=== PATIENT | male | born 1940 | race Caucasian/White ===

== ENCOUNTER 2017-10-24 08:31 | Day surgery (SDC) | payer MEDICARE ==
[~2017-10-24 08:31] MED LIST: Povidone-Iodine 5% Sterile Ophth Soln 30 ML Bottle EYELF ONE
[2017-10-24] MEDS ORDERED: Dexamethasone 4 MG/ML SDV IV ONE (08:32)
[2017-10-24] MEDS ORDERED: Midazolam 1 MG/ML 2 ML SDV IV ONE (08:32)
[2017-10-24] MEDS ORDERED: Cataract Ophth Solution EYELF ONE (09:00)
[2017-10-24] MEDS ORDERED: Timolol Maleate 0.5% Ophth Soln 5 ML Bottle EYELF ONE (09:00)
[2017-10-24] MEDS ORDERED: Proparacaine 0.5% Ophth Soln 15 ML Bottle EYELF ONE (09:00)
[2017-10-24] MEDS ORDERED: Moxifloxacin 0.5% Ophth Soln 3 ML Bottle EYELF ONE (09:00)
[2017-10-24] MEDS ORDERED: Phenylephrine 10% Ophth Soln 5 ML Bot EYELF ONE (09:00)
[2017-10-24] MEDS ORDERED: Acetaminophen 325 MG Tab PO PRN (09:00)
[2017-10-24] MEDS ORDERED: Sodium Chloride 0.9% 10 ML Syringe FLUSH PRN (09:00)
[2017-10-24] MEDS ORDERED: Ondansetron 4 MG/2 ML SDV IVPUSH PRN (09:00)
[2017-10-24] MEDS ORDERED: Diclofenac Sodium 0.1% Ophth Soln 5 ML Bottle EYELF ONE (10:07)
[2017-10-24] MEDS ORDERED: Apraclonidine 0.5% Ophth Soln 5 ML Bot EYELF ONE (10:07)
[2017-10-24] MEDS ORDERED: Tetracaine HCl/PF 0.5% 4 ML Bottle EYELF ONE (10:07)
[2017-10-24] MEDS ORDERED: Dexamethasone/Neomycin/Polymyxin B Ophth Oint 3.5 GM Tube EYELF ONE (10:07)
[2017-10-24] MEDS ORDERED: Lidocaine 1% 30 ML SDV ONE (10:07)
[2017-10-24] MEDS ORDERED: Balanced Salt Solution Ophth Irrig 500 ML Bottle IOCULAR ONE (10:08)
[2017-10-24] MEDS ORDERED: Chondroitin Sulfate/Hyaluronate Sodium Ophth Inj 0.5 ML Syringe IOCULAR ONE (10:08)
[2017-10-24] MEDS ORDERED: Vancomycin 500 MG SDV EYELF ONE (10:08)
--- NOTE | 2017-10-24 13:28 | OR ---
DATE: 10/24/2017 PREOPERATIVE DIAGNOSES: Visually significant mixed cataract, left eye. POSTOPERATIVE DIAGNOSES: Visually significant mixed cataract, left eye. PROCEDURE: Extracapsular cataract extraction with intraocular lens implant, left eye. ANESTHESIA: Topical/local MAC. COMPLICATIONS: None. INDICATION: Mr. Mack was seen in the clinic. His clinical examination revealed visually significant mixed nuclear and cortical cataract. He is symptomatic with complaints of blurred vision, difficulty reading, difficulty seeing fine print, and difficulty seeing television. I explained options. I offered cataract surgery, and I explained risks including the potential for vision loss. We discussed implant options. He requested a monofocal implant. OPERATIVE DESCRIPTION: After informed consent was obtained and the risks, benefits, and alternatives were explained, the patient was brought to the operative suite and topical anesthesia was administered. The patient was then prepped and draped in the sterile fashion and attention was placed on the left eye. A sterile lid speculum was placed into the left eye to allow operative exposure. A full-thickness paracentesis was made in the temporal portion of the operative eye. Preservative-free lidocaine 0.1 mL was injected into the anterior chamber followed by viscoelastic. A full-thickness corneal incision was then made into the anterior chamber. A bent needle cystotome was used to create a small karri in the anterior capsule. The capsulorrhexis forceps was then used to create a 360-degree curvilinear capsulorrhexis. The nucleus was then removed using a phacoemulsification handpiece and the remaining cortical material was then removed with irrigation and aspiration handpiece. Following removal of the cortical material, the capsular bag was then inspected and noted to be free of any holes or tears. Viscoelastic was then injected into the capsular bag and the intraocular lens was inserted into the capsular bag. The viscoelastic material was then removed from both the anterior and posterior chambers and from behind the IOL. The lens and capsular bag were then reinspected. The IOL was well centered and the capsular bag intact. The wound and paracentesis sites were inspected and hydrated with balanced saline solution. Both were found to be self- sealing. The intraocular pressure was assessed digitally and found to be within normal range. A good red reflex was noted at the completion of the procedure. No complications occurred during the operation. At the completion of the procedure, Maxitrol, Voltaren, and Iopidine drops were placed into the operative eye. A sterile eye shield was placed over the operative eye and the patient was transported to the postoperative recovery area having tolerated the procedure well. Postoperative instructions were given along with a postoperative appointment. The patient was advised to call with any questions or concerns. [facility] /[id number]
== END 2017-10-24 11:25 | disposition home or self-care (01) ==
LOC: DL.SDS 08:31
PROVIDERS: ATTEND Ophthalmology
DX: H25.812 Combined forms of age-related cataract, left eye (principal); J44.9 Chronic obstructive pulmonary disease, unspecified; E11.9 Type 2 diabetes mellitus without complications; E78.5 Hyperlipidemia, unspecified; I10 Essential (primary) hypertension; I50.9 Heart failure, unspecified; Z95.2 Presence of prosthetic heart valve; Z87.891 Personal history of nicotine dependence; Z91.041 Radiographic dye allergy status; Z79.84 Long term (current) use of oral hypoglycemic drugs; Z79.82 Long term (current) use of aspirin; Z79.899 Other long term (current) drug therapy
CPT/HCPCS: 00142; 66984; A9270; J1100; J2250; J3370; J7050; C1780

== ENCOUNTER 2018-12-02 16:51 | Emergency (ER) | payer MEDICARE, OTHER ==
--- NOTE | 2018-12-02 15:21 | EDM.PDOC ---
ED HPI GENERAL MEDICAL PROBLEM - General Chief Complaint: Trauma Stated Complaint: CALL IN FROM CLINIC Time Seen by Provider: 12/02/18 15:20 Source of Information: Reports: Patient, Old Records, Provider (Alice Hannah NP), RN , RN Notes Reviewed History Limitations: Reports: No Limitations - History of Present Illness INITIAL COMMENTS - FREE TEXT/NARRATIVE: Pt arrives to ER by POV sent from clinic by Alice Hannah NP for evaluation due to right should injury yesterday sustained from a ground level fall outside next to his car. Pt states he slipped and lost his balance and fell to his right side. The fall was approx. 22 to 23 hours ago. He states that he did hit his head, but did not have a LOC and denies nausea, vomiting, neck pain or any other injury. Pt did not seek medical care until today because his right upper arm/shoulder were still painful. See RN/paper trauma chart for time of Trauma Alert. Pt declined/refused c-collar on arrival. GCS on arrival: 15 Onset: Sudden Onset Date: 12/01/18 Onset Time: 14:30 (est. time per pt.) Duration: Day(s): (1) Location: Reports: Upper Extremity, Right Quality: Reports: Ache Severity: Severe Improves with: Reports: Immobilization Worsens with: Reports: Movement Context: Reports: Other (Ground level fall) Associated Symptoms: Reports: No Other Symptoms - Related Data Allergies Allergy/AdvReac Type Severity Reaction Status Date / Time XRAY DYE Allergy Other Uncoded 10/24/17 09:18 Home Meds: Home Meds Albuterol [IJD: Albuterol] 1 vial INH ASDIRECTED 10/22/17 [History] Aspirin [Halfprin] 81 mg PO DAILY 10/22/17 [History] Budesonide [Pulmicort] 1 ampule INH BID 10/22/17 [History] Clopidogrel Bisulfate [Plavix] 75 mg PO DAILY 10/22/17 [History] Ferrous Sulfate [Iron] 325 mg PO DAILY 10/22/17 [History] Furosemide 20 mg PO DAILY 10/22/17 [History] Metoprolol Succinate [Toprol XL 50mg] 50 mg PO DAILY 10/22/17 [History] Simvastatin [Zocor] 20 mg PO DAILY 10/22/17 [History] Vitamin B Complex 1 tab PO DAILY 10/22/17 [History] metFORMIN HCl [Metformin HCl] 1,000 mg PO BID 10/22/17 [History] traMADol [Ultram] 1 tab PO Q6H 10/24/17 [History] Past Medical History HEENT History: Reports: Cataract Cardiovascular History: Reports: Heart Valve Replacement, Hypertension Respiratory History: Reports: Other (See Below) Other Respiratory History: is on inhalers due to heart Gastrointestinal History: Reports: Other (See Below) Other Gastrointestinal History: HX OF COLON CA Genitourinary History: Reports: None Musculoskeletal History: Reports: Arthritis Neurological History: Reports: None Psychiatric History: Reports: None Endocrine/Metabolic History: Reports: Diabetes, Type II Hematologic History: Reports: None Immunologic History: Reports: None Oncologic (Cancer) History: Reports: Colon Dermatologic History: Reports: None - Infectious Disease History Infectious Disease History: Reports: None - Past Surgical History HEENT Surgical History: Reports: None Cardiovascular Surgical History: Reports: Valve Replacement, Other (See Below) Other Cardiovascular Surgeries/Procedures: AORTIC 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 GI Surgical History: Reports: Colonoscopy, Other (See Below) Other GI Surgeries/Procedures: surg for colon ca Musculoskeletal Surgical History: Reports: Joint Replacement, Knee Replacement Social & Family History - Family History Family Medical History: Noncontributory - Caffeine Use Caffeine Use: Reports: Coffee Caffeine Use Comment: 16 oz - Alcohol Use Alcohol Use History: No - Recreational Drug Use Recreational Drug Use: No - Living Situation & Occupation Living situation: Reports: Single, Alone Occupation: Retired Review of Systems - Review of Systems Review Of Systems: ROS reveals no pertinent complaints other than HPI. ED EXAM, GENERAL - Physical Exam Exam: See Below Free Text/Narrative:: PRIMARY TRAUMA SURVEY (15:20HRS): Arrives by POV without spinal immobilization on long spinal board, or c-collar. Pt awake, alert, oriented to person, place, and date. AIRWAY: Patent nasal and oral airways. Conversant with clear speech. BREATHING: Spontaneous respirations, with lungs clear to auscultation B/L. CIRCULATION: Good color, no cyanosis. Intact peripheral pulses at all 4 distal extremities, normal capillary refill time at all four extremities distal digits. Heart irreg/irreg, no murmur, no rub. DISABILITY/DEFORMITIES: No bleeding. Right shoulder and upper arm with subacute appearing contusion and hematoma, with visible shoulder and/or clavicular deformity. No left upper or B/ L lower extremity pain, obvious deformity, lacerations, abrasions, swelling, bruising, discoloration, or other signs of injury. Riri pelvis intact, stable and non-tender. Abdomen benign to exam. Chest non-tender anteriorly, no flail chest, crepitus, or subcutaneous emphysema. Neuro. grossly intact with pt. A&O x3, appropriate conversation, no confusion, CN II-XII intact. No acute motor or sensory deficits, GCS 15 on arrival to ER. Skin clean, dry, warm, and intact. EXPOSURE: Pt had no neck or cervical riri tenderness, and full ROM of neck. No visible injury to back, no vertebral riri tenderness. SECONDARY TRAUMA SURVEY FOLLOWS: Exam Limited By: No Limitations General Appearance: Alert, No Apparent Distress, Other (Frail elderly appearing male) Eye Exam: Bilateral Eye: Normal Inspection Ears: Normal External Exam, Normal Canal, Hearing Grossly Normal, Normal TMs Nose: Normal Inspection, Normal Mucosa, No Blood Throat/Mouth: Normal Inspection, Normal Lips, Normal Oropharynx, Normal Voice, No Airway Compromise Head: Atraumatic, Normocephalic Neck: Normal Inspection, Supple, Non-Tender, Full Range of Motion Respiratory/Chest: No Respiratory Distress, Lungs Clear, No Accessory Muscle Use , Chest Non-Tender, Decreased Breath Sounds Cardiovascular: Irregularly Irregular GI/Abdominal: Normal Bowel Sounds, Soft, Non-Tender, No Distention, Other ( Benign obese abdomen) (Male) Exam: Deferred Rectal (Males) Exam: Deferred Back Exam: Normal Inspection, Full Range of Motion Extremities: Non-Tender (Left upper and B/L lower extremities.), Normal Capillary Refill, Other (Rt shoulder w/severe pain with any attempt at ROM.) Neurological: Alert, Oriented, CN II-XII Intact, Normal Cognition, No Motor/ Sensory Deficits, Other (GCS 15 at 1 hour. GCS 15 at time of discharge.) Psychiatric: Normal Affect, Normal Mood Skin Exam: Warm, Dry, Intact Course - Vital Signs Last Recorded V/S: See paper trauma chart for VS. - Orders/Labs/Meds Orders: Active Orders 24 hr Category Date Time Status Immobilizer [RC] ASDIRECTED Care 12/02/18 17:34 Active Labs: Laboratory Tests 12/02/18 12/02/18 12/02/18 Range/Units 15:28 15:28 15:28 WBC 13.2 H (5.0-10.0) 10^3/uL RBC 3.10 L (4.6-6.2) 10^6/uL Hgb 10.3 L (14.0-18.0) g/dL Hct 30.6 L (40.0-54.0) % MCV 98.7 (80-100) fL MCH 33.2 (27.0-34.0) pg MCHC 33.7 (33.0-35.0) g/dL Plt Count 219 (150-450) 10^3/uL Neut % (Auto) 75.4 H (42.2-75.2) % Lymph % (Auto) 12.5 L (20.5-50.1) % [place] % (Auto) 11.8 H (2-8) % Eos % (Auto) 0.1 L (1.0-3.0) % Baso % (Auto) 0.2 (0.0-1.0) % PT 11.2 (9.0-12.0) SEC INR 1.1 (0.9-1.2) APTT 23.9 (22.0-34.0) SEC Sodium 132 L (135-145) mmol/L Potassium 4.1 (3.6-5.0) mmol/L Chloride 96 L (101-111) mmol/L Carbon Dioxide 21.0 (21.0-31.0) mmol/L Anion Gap 19.1 BUN 36 H (7-18) mg/dL Creatinine 1.8 H (0.6-1.3) mg/dL Est Cr Clr Drug Dosing TNP Estimated GFR (MDRD) 36 BUN/Creatinine Ratio 20.00 Glucose 253 H (74-105) mg/dL Calcium 9.0 (8.4-10.2) mg/dl Total Bilirubin 0.9 (0.2-1.0) mg/dL AST 27 (10-42) IU/L ALT 11 (10-60) IU/L Alkaline Phosphatase 57 (42-121) IU/L Troponin I < 0.02 (0.00-0.02) ng/ml Total Protein 7.6 (6.7-8.2) g/dl Albumin 4.0 (3.2-5.5) g/dl Globulin 3.6 Albumin/Globulin Ratio 1.11 Ethyl Alcohol < 5 mg/dL Meds: Medications Discontinued Medications Generic Name Dose Route Start Last Admin Trade Name Gunnar PRN Reason Stop Dose Admin Hydromorphone HCl 0.5 mg 12/02/18 16:16 12/02/18 16:35 Dilaudid IVPUSH 12/02/18 16:17 0.5 mg ONETIME ONE Administration Hydromorphone HCl 0.5 mg 12/02/18 17:05 12/02/18 17:15 Dilaudid IVPUSH 12/02/18 17:06 0.5 mg ONETIME ONE Administration Ondansetron HCl 4 mg 12/02/18 16:16 12/02/18 16:31 Zofran IV 12/02/18 16:17 4 mg ONETIME ONE Administration Sodium Chloride 10 ml 12/02/18 15:23 12/02/18 17:22 Saline Flush FLUSH 10 ml ASDIRECTED PRN Administration Keep Vein Open - Radiology Interpretation Free Text/Narrative:: CT Head: no acute I.C. hemorrhage, see Rad. report. CT Rt Upper Extremity: Comminuted proximal Rt humeral fx w/impaction. 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 report. - Re-Assessments/Exams Free Text/Narrative Re-Assessment/Exam: 12/02/18 17:[address] Brunner via [employer] One Call. Dr. Brunner advises placing the pt in a shoulder immobilizer and he will see him in clinic on (December 04) for orthopedic evaluation. Pt rechecked prior to D/C. He was able to transfer and ambulate at his baseline. He understands the need and timing of orthopedic f/u with Dr. Brunner on Sunday. Pt states that he feels fine and is comfortable going home at this time. Departure - Departure Time of Disposition: 17:43 Disposition: Home, Self-Care 01 Condition: Fair Clinical Impression: Fall from ground level Minor head injury without loss of consciousness Qualifiers: Encounter type: initial encounter Qualified Code(s): S09.90XA - Unspecified injury of head, initial encounter Closed fracture of right proximal humerus Qualifiers: Encounter type: initial encounter Fracture morphology: other fracture Fracture alignment: displaced Qualified Code(s): S42.291A - Other displaced fracture of upper end of right humerus, initial encounter for closed fracture - Discharge Information *PRESCRIPTION DRUG MONITORING PROGRAM REVIEWED*: No *COPY OF PRESCRIPTION DRUG MONITORING REPORT IN PATIENT ELEUTERIO: No Instructions: Humerus Fracture Treated With Immobilization, [id number] Forms: ED Department Discharge Additional Instructions: Rx: Hydrocodone APAP 5mg/325mg *Do not drive while under the influence of this medication. Do not remove the shoulder brace. Call: [phone] to make an appointment for December [address] Brunner at [facility] in [place]. - My Orders Last 24 Hours: My Active Orders 12/02/18 17:34 Immobilizer [RC] ASDIRECTED - Assessment/Plan Last 24 Hours: My Active Orders 12/02/18 17:34 Immobilizer [RC] ASDIRECTED
[2018-12-02 15:56] LABS: ANION GAP 19.1; CHLORIDE,CL 96 mmol/L (101-111); SODIUM,NA 132 mmol/L (135-145)
--- NOTE | 2018-12-02 16:00 | CT ---
Clinical history: 78-year-old male experienced head injury with ground level fall (history colon cancer). Scan technique: Volume acquisition of data emergency unenhanced CT scan of the head and brain obtained while the patient was lying supine on the Siemens multi slice scanner [place], [place]. All data archived in the PACS system for storage, reformatting axial/sagittal/coronal planes and study. Interpretation: 1. Uniformly thick bony calvarium without sign of skull fracture, underlying brain contusion or epidural/subdural hematoma. 2. Moderate severe but age appropriate cerebral cortical atrophy with underlying mirror-image normal ventricular system. 3. Scattered microvascular ischemic changes periventricular white matter. No large ischemic infarcts or encephalomalacia. 4. No sign of acute intracerebral/intraventricular/subarachnoid bleed. 5. Cerebellum and brainstem unremarkable (physiologic midline pineal and symmetric choroid plexus calcifications). 6. Symmetric clear pneumatization of the paranasal and mastoid sinuses. 7. *Fracture right clavicle and impacted right humeral neck fracture noted incidentally on psychosocial rehabilitation counselor image. CONCLUSION: Right shoulder fractures. No skull fracture or signs of closed head injury.
--- NOTE | 2018-12-02 16:13 | CT ---
Clinical history: 78-year-old male injured right shoulder and ground-level fall. Interpretation: Volume acquisition of data emergency unenhanced CT scan right shoulder obtained while the patient was lying supine on the Siemens multi slice scanner [place], [place]. All data archived in the PACS system for storage, reformatting axial/sagittal/coronal planes and study. Interpretation: 1. *Comminuted proximal right humeral fracture with impaction of the proximal humeral shaft into the head of the humerus. 2. Anatomic alignment in the AP projection but... posterior angulation deformity humeral head on lateral projection. (no glenohumeral dislocation) Arthritic changes but no sternoclavicular or acromioclavicular separation. 3. 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 4. No fractures of the underlying ribs right hemithorax. No underlying contusion, ipsilateral right pleural effusion or pneumothorax. 5. Incidental evidence multilevel disc disease; chronic arthritis; neurosurgical intervention of the cervical spine (posterior fusion). 6. Cardiac Aortic valve prosthesis.
[2018-12-02] MEDS: Sodium Chloride 0.9% 10 ML Syringe FLUSH PRN ×2 (16:38→17:22)
[~2018-12-02 16:51] MED LIST changes: +HYDROmorphone 1 MG/ML Syringe IVPUSH ONE; +Ondansetron 4 MG/2 ML SDV IV ONE; -Povidone-Iodine 5% Sterile Ophth Soln 30 ML Bottle EYELF ONE
[2018-12-02] MEDS ORDERED: HYDROmorphone 1 MG/ML Syringe IVPUSH ONE (17:05)
== END 2018-12-02 18:33 | disposition home or self-care (01) ==
LOC: DL.ED 16:51
DX: S42.291A Other displaced fracture of upper end of right humerus, initial encounter for closed fracture (principal); S09.90XA Unspecified injury of head, initial encounter; E11.9 Type 2 diabetes mellitus without complications; W01.0XXA Fall on same level from slipping, tripping and stumbling without subsequent striking against object, initial encounter; Z79.82 Long term (current) use of aspirin; Z79.899 Other long term (current) drug therapy; Z79.84 Long term (current) use of oral hypoglycemic drugs; Z95.4 Presence of other heart-valve replacement
CPT/HCPCS: 36415; 70450; 73200; 80053; 84484; 85025; 85610; 85730; 96374; 96375; 99284; G0480; J1170; J2405

== ENCOUNTER 2021-05-20 14:37 | Emergency (ER) | payer MEDICARE ==
--- NOTE | 2021-05-20 14:55 | EDM.PDOC ---
ED HPI GENERAL MEDICAL PROBLEM - General Chief Complaint: Respiratory Problem Stated Complaint: AMBULANCE Time Seen by Provider: 05/20/21 14:40 Source of Information: Reports: Patient History Limitations: Reports: No Limitations - History of Present Illness INITIAL COMMENTS - FREE TEXT/NARRATIVE: This 81 yo male patient was brought to the ED from the [facility] due to shortness of breath. The clinic reported to nursing staff that they had done a COVID test, but did not wait for the results before bringing the patient to the ED. The patient reports he has been having increased weakness and shortness of breath over the past 1-2 weeks. The patient reports he does have a history of COPD and is on a nebulizer. The patient reports his last home treatment was at 1130 today. The patient reports he also has a history of cancer in his colon. Duration: Week(s):, Constant, Getting Worse Location: Reports: Chest Quality: Reports: Other Severity: Moderate Improves with: Reports: None Worsens with: Reports: Movement Associated Symptoms: Reports: cough w sputum, Shortness of Breath, Weakness Treatments [employer] WAVE: Reports: EKG, IV/IO Generalized Pain Score (Numeric/FACES): 5 - Related Data Allergies Allergy/AdvReac Type Severity Reaction Status Date / Time XRAY DYE Allergy Other Uncoded 05/20/21 14:48 Home Meds: Home Meds Albuterol [IJD: Albuterol] 1 vial INH ASDIRECTED 10/22/17 [History] Aspirin [Halfprin] 81 mg PO DAILY 10/22/17 [History] Budesonide [Pulmicort] 1 ampule INH BID 10/22/17 [History] Clopidogrel Bisulfate [Plavix] 75 mg PO DAILY 10/22/17 [History] Ferrous Sulfate [Iron] 325 mg PO DAILY 10/22/17 [History] Furosemide 20 mg PO DAILY 10/22/17 [History] Metoprolol Succinate [Toprol XL 50mg] 50 mg PO DAILY 10/22/17 [History] Simvastatin [Zocor] 20 mg PO DAILY 10/22/17 [History] Vitamin B Complex 1 tab PO DAILY 10/22/17 [History] metFORMIN HCl [Metformin HCl] 1,000 mg PO BID 10/22/17 [History] traMADol [Ultram] 1 tab PO Q6H 10/24/17 [History] Past Medical History HEENT History: Reports: Cataract Cardiovascular History: Reports: Heart Valve Replacement, Hypertension Respiratory History: Reports: Other (See Below) Other Respiratory History: is on inhalers due to heart Gastrointestinal History: Reports: Other (See Below) Other Gastrointestinal History: HX OF COLON CA Genitourinary History: Reports: Other (See Below) Other Genitourinary History: hx of bladder cancer Musculoskeletal History: Reports: Arthritis Neurological History: Reports: None Psychiatric History: Reports: None Endocrine/Metabolic History: Reports: Diabetes, Type II Hematologic History: Reports: None Immunologic History: Reports: None Oncologic (Cancer) History: Reports: Bladder, Colon Dermatologic History: Reports: None - Infectious Disease History Infectious Disease History: Reports: None - Past Surgical History HEENT Surgical History: Reports: None Cardiovascular Surgical History: Reports: Valve Replacement, Other (See Below) Other Cardiovascular Surgeries/Procedures: 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 ED EXAM, GENERAL - Physical Exam Exam: See Below Exam Limited By: No Limitations General Appearance: Alert, WD/WN, Moderate Distress Eye Exam: Bilateral Eye: EOMI, Normal Inspection, PERRL Ears: Normal External Exam, Normal Canal, Hearing Grossly Normal, Normal TMs Nose: Normal Inspection Throat/Mouth: Normal Inspection, Normal Lips, Normal Teeth, Normal Gums, Normal Oropharynx, Normal Voice, No Airway Compromise Head: Atraumatic, Normocephalic Neck: Normal Inspection, Supple, Non-Tender, Full Range of Motion Respiratory/Chest: Rhonchi (diffuse), Wheezing Cardiovascular: Normal Peripheral Pulses, Regular Rate, Rhythm, No Edema, No Gallop, No JVD, No Murmur, No Rub GI/Abdominal: Normal Bowel Sounds, Soft, Tender (lower abdomen (chronic according to patient)) Rectal (Males) Exam: Deferred Back Exam: Normal Inspection, Full Range of Motion, NT Extremities: Normal Inspection, Normal Range of Motion, Non-Tender, Normal Capillary Refill, No Pedal Edema Neurological: Alert, Oriented, CN II-XII Intact, Normal Cognition, Normal Gait, Normal Reflexes, No Motor/Sensory Deficits Psychiatric: Normal Affect, Normal Mood Skin Exam: Warm, Dry, Intact, Normal Color, No Rash Lymphatic: No Adenopathy Course - Vital Signs Last Recorded V/S: Last Vital Signs Temp 97.6 F 05/20/21 14:40 Pulse 101 H 05/20/21 14:40 Resp 20 05/20/21 14:40 BP 94/46 L 05/20/21 14:40 Pulse Ox 94 L 05/20/21 14:40 - Orders/Labs/Meds Orders: Active Orders 24 hr Category Date Time Status RT Aerosol Therapy [RC] ASDIRECTED Care 05/20/21 14:40 Active CULTURE BLOOD [BC] Stat Lab 05/20/21 15:00 Results REFLEX LACTIC ACID YES OR NO [CHEM] Routine Lab 05/20/21 15:48 Received Labs: Laboratory Tests 05/20/21 05/20/21 05/20/21 Range/Units 15:00 15:11 15:11 WBC 11.9 H (5.0-10.0) 10^3/uL RBC 2.90 L (4.6-6.2) 10^6/uL Hgb 9.4 L (14.0-18.0) g/dL Hct 28.1 L (40.0-54.0) % MCV 96.9 D (80-100) fL MCH 32.4 (27.0-34.0) pg MCHC 33.5 (33.0-35.0) g/dL Plt Count 216 (150-450) 10^3/uL Neut % (Auto) 91.8 H (42.2-75.2) % Lymph % (Auto) 4.8 L (20.5-50.1) % [place] % (Auto) 3.3 (2-8) % Eos % (Auto) 0.1 L (1.0-3.0) % Baso % (Auto) 0.0 (0.0-1.0) % PT 11.0 (9.0-12.0) SEC INR 1.1 (0.9-1.2) D-Dimer, Quantitative 2570 H (0-400) ng/mL Sodium (136-145) mmol/L Potassium (3.5-5.1) mmol/L Chloride (98-107) mmol/L Carbon Dioxide (21-32) mmol/L Anion Gap (7-13) mEq/L BUN (7-18) mg/dL Creatinine (0.70-1.30) mg/dL Est Cr Clr Drug Dosing Estimated GFR (MDRD) BUN/Creatinine Ratio (No establ ref range) Glucose (70-99) mg/dL Lactic Acid 3.0 H* (0.4-2.0) mmol/L Calcium (8.5-10.1) mg/dL Total Bilirubin (0.2-1.0) mg/dL AST (15-37) U/L ALT (16-63) U/L Alkaline Phosphatase (46-116) U/L Troponin I High Sens (<=76) pg/mL B-Natriuretic Peptide (0-100) pg/ml Total Protein (6.4-8.2) g/dL Albumin (3.4-5.0) g/dL Globulin Albumin/Globulin Ratio // Range/Units 15:11 WBC (5.0-10.0) 10^3/uL RBC (4.6-6.2) 10^6/uL Hgb (14.0-18.0) g/dL Hct (40.0-54.0) % MCV (80-100) fL MCH (27.0-34.0) pg MCHC (33.0-35.0) g/dL Plt Count (150-450) 10^3/uL Neut % (Auto) (42.2-75.2) % Lymph % (Auto) (20.5-50.1) % [place] % (Auto) (2-8) % Eos % (Auto) (1.0-3.0) % Baso % (Auto) (0.0-1.0) % PT (9.0-12.0) SEC INR (0.9-1.2) D-Dimer, Quantitative (0-400) ng/mL Sodium 133 L (136-145) mmol/L Potassium 3.6 (3.5-5.1) mmol/L Chloride 98 (98-107) mmol/L Carbon Dioxide 22 (21-32) mmol/L Anion Gap 16.6 H (7-13) mEq/L BUN 89 H (7-18) mg/dL Creatinine 4.12 H (0.70-1.30) mg/dL Est Cr Clr Drug Dosing TNP Estimated GFR (MDRD) 14 BUN/Creatinine Ratio 21.6 (No establ ref range) Glucose 293 H (70-99) mg/dL Lactic Acid (0.4-2.0) mmol/L Calcium 9.1 (8.5-10.1) mg/dL Total Bilirubin 0.5 (0.2-1.0) mg/dL AST 16 (15-37) U/L ALT 23 (16-63) U/L Alkaline Phosphatase 95 (46-116) U/L Troponin I High Sens 30 (<=76) pg/mL B-Natriuretic Peptide 1130 H (0-100) pg/ml Total Protein 7.1 (6.4-8.2) g/dL Albumin 2.2 L (3.4-5.0) g/dL Globulin 4.9 Albumin/Globulin Ratio 0.45 Meds: Medications Discontinued Medications Generic Name Dose Route Start Last Admin Trade Name Freq PRN Reason Stop Dose Admin Albuterol/Ipratropium 3 ml 05/20/21 14:39 05/20/21 15:00 Albuterol/Ipratropium 3.0-0.5 Mg/3 Ml Neb Soln NEB 05/20/21 14:40 3 ml ONETIME ONE Administration Furosemide 40 mg 05/20/21 16:31 05/20/21 16:54 Furosemide 40 Mg/4 Ml Vial IVPUSH 05/20/21 16:32 40 mg ONETIME ONE Administration Ceftriaxone Sodium 1 gm/ 50 mls @ 100 mls/hr 05/20/21 16:32 05/20/21 16:59 Sodium Chloride IV 05/20/21 17:01 100 mls/hr ONETIME ONE Administration Departure - Departure Time of Disposition: 17:43 Disposition: DC/Tfer to Acute Hospital 02 Condition: Serious Clinical Impression: Elevated brain natriuretic peptide (BNP) level, Elevated d-dimer Acute renal failure Qualifiers: Acute renal failure type: unspecified Qualified Code(s): N17.9 - Acute kidney failure, unspecified Pneumonia Qualifiers: Pneumonia type: due to unspecified organism Laterality: right Lung location: unspecified part of lung Qualified Code(s): J18.9 - Pneumonia, unspecified organism - Discharge Information *PRESCRIPTION DRUG MONITORING PROGRAM REVIEWED*: Not Applicable *COPY OF PRESCRIPTION DRUG MONITORING REPORT IN PATIENT ELEUTERIO: Not Applicable Forms: Interfacility Transfer EMTALA Care Plan Goals: Discussed the patient's history, examination, lab, x-ray and treatments with Dr. Dennis. The patient was accepted for continued evaluation and management at [facility]. The patient will be transported by [facility]. Sepsis Event Note (ED) - Evaluation Sepsis Screening Result: No Definite Risk - Focused Exam Vital Signs: Vital Signs Temp Pulse Pulse Resp BP Pulse Ox Pulse Ox 05/20/21 14:40 97.6 F 94 101 H 20 94/46 L 92 L 94 L - My Orders Last 24 Hours: My Active Orders 05/20/21 14:40 RT Aerosol Therapy [RC] ASDIRECTED 05/20/21 15:00 CULTURE BLOOD [BC] Stat 05/20/21 15:48 REFLEX LACTIC ACID YES OR NO [CHEM] Routine - Assessment/Plan Last 24 Hours: My Active Orders 05/20/21 14:40 RT Aerosol Therapy [RC] ASDIRECTED 05/20/21 15:00 CULTURE BLOOD [BC] Stat 05/20/21 15:48 REFLEX LACTIC ACID YES OR NO [CHEM] Routine
[2021-05-20] MEDS: Albuterol/Ipratropium 3.0-0.5 MG/3 ML Neb Soln NEB ONE (15:00)
[2021-05-20 15:44] LABS: ANION GAP 16.6 mEq/L (7-13); CHLORIDE,CL 98 mmol/L (98-107); SODIUM,NA 133 mmol/L (136-145)
--- NOTE | 2021-05-20 15:56 | CR ---
EXAMINATION: Chest 1V Frontal SEX: Male AGE: 81 years CLINICAL HISTORY: 81-year-old male shortness of breath (patient "COVID Negative" at clinic). No known aspiration. Interpretation: Abnormal. *Asymmetric dense new pneumonic like consolidation right middle and right lower lobe (silhouetting the right heart border and ipsilateral right hemidiaphragm) since comparison chest CT November 2015. Clinical aspiration? Normal cardiac silhouette. No pulmonary vascular congestion new cephalization of vascular flow or alveolar edema. Some patchy atelectasis contralateral left lung base. No sign of lung mass or hilar lymphadenopathy. No other focal lobar consolidation.
[2021-05-20] MEDS: Furosemide 40 MG/4 ML VIAL IVPUSH ONE (16:54)
[2021-05-20] MEDS: cefTRIAXone 1 GM in Sodium Chloride 0.9% 50 ML IV ONE (16:59)
== END 2021-05-20 21:45 ==
LOC: DL.ED 14:37
DX: J18.9 Pneumonia, unspecified organism (principal); N17.9 Acute kidney failure, unspecified; R79.89 Other specified abnormal findings of blood chemistry; E11.9 Type 2 diabetes mellitus without complications; Z91.041 Radiographic dye allergy status; Z79.82 Long term (current) use of aspirin; Z79.899 Other long term (current) drug therapy
CPT/HCPCS: 36415; 71045; 80053; 83605; 83880; 84484; 85025; 85379; 85610; 87040; 87077; 93005; 94640; 96365; 96375; 99285; J0696; J1940; J7620-GY